=== PATIENT | male | born 1940 | race Caucasian/White ===

== ENCOUNTER 2019-08-02 13:10 | Emergency (ER) | payer MEDICARE, OTHER ==
[2019-08-02] MEDS: Sodium Chloride 0.9% 1,000 ML IV ONE (13:10)
--- NOTE | 2019-08-02 13:31 | EDM.PDOC ---
ED HPI GENERAL MEDICAL PROBLEM - General Chief Complaint: Lower Extremity Injury/Pain Stated Complaint: Left Hip Pain Time Seen by Provider: 08/02/19 13:10 Source of Information: Reports: Patient, EMS History Limitations: Reports: No Limitations - History of Present Illness INITIAL COMMENTS - FREE TEXT/NARRATIVE: Patient comes into the emergency department via EMS with complaint of a fall and injury to right hip. Patient states that he was walking backwards on his deck and ended up slipping and falling due to the slippery conditions from the rain. He ended up falling on his right hip. He was unable to stand up on his own and ended up needing to call 911. Patient states the pain is tolerable without movement and is very painful if touching or moving his right lower leg or pelvis. Patient states he can move his toes and denies any numbness or tingling in that extremity. Denies any previous injuries or surgeries to that him. Patient had an IV and 100 mcg Fentanyl given via EMS prior to arrival with great pain relief noted. Pt backboard was removed in the ER. Patient denies hitting his head or any other injuries noted. Onset: Sudden Quality: Reports: Sharp, Throbbing Severity: Moderate Improves with: Reports: Immobilization Worsens with: Reports: Movement Context: Reports: Activity Associated Symptoms: Reports: No Other Symptoms Treatments FACILITY SERVICE ASSOCIATE: Reports: IV/IO, See EMS Report - Related Data Allergies Allergy/AdvReac Type Severity Reaction Status Date / Time No Known Allergies Allergy Verified 08/02/19 13:47 Home Meds: Home Meds Lisinopril 40 mg PO DAILY 09/17/15 [History] Simvastatin [Zocor] 40 mg PO DAILY 09/17/15 [History] buPROPion HCL [Bupropion HCl Sr] 200 mg PO DAILY 08/02/19 [History] Past Medical History Cardiovascular History: Reports: High Cholesterol, Hypertension Psychiatric History: Reports: Depression - Past Surgical History GI Surgical History: Reports: Appendectomy, Other (See Below) Review of Systems - Review of Systems Review Of Systems: See Below Constitutional: Reports: No Symptoms Eyes: Reports: No Symptoms Ears: Reports: No Symptoms Nose: Reports: No Symptoms Mouth/Throat: Reports: No Symptoms Respiratory: Reports: No Symptoms Cardiovascular: Reports: No Symptoms GI/Abdominal: Reports: No Symptoms Genitourinary: Reports: No Symptoms Musculoskeletal: Reports: No Symptoms Skin: Reports: No Symptoms Neurological: Reports: No Symptoms Psychiatric: Reports: No Symptoms ED EXAM, GENERAL - Physical Exam Exam: See Below Exam Limited By: No Limitations General Appearance: Alert, WD/WN, No Apparent Distress Eye Exam: Bilateral Eye: EOMI, PERRL Throat/Mouth: Normal Inspection, Normal Lips, Normal Gums, Normal Voice, No Airway Compromise Head: Atraumatic, Normocephalic Neck: Normal Inspection, Supple, Non-Tender, Full Range of Motion Respiratory/Chest: No Respiratory Distress, Lungs Clear, Normal Breath Sounds, No Accessory Muscle Use, Chest Non-Tender Cardiovascular: Normal Peripheral Pulses, Regular Rate, Rhythm, No Edema GI/Abdominal: Normal Bowel Sounds, Soft, Non-Tender, Pelvis Stable Back Exam: Normal Inspection, Full Range of Motion Extremities: Leg Pain, Limited Range of Motion, Other (right leg shortening- deformity noted, pain upon palpation, no bleeding or redness noted. CMS intact. Ankle rang of Motion in take ) Neurological: Alert, Oriented, Normal Cognition Psychiatric: Normal Affect, Normal Mood Skin Exam: Warm, Dry, Intact Course - Orders/Labs/Meds Orders: Active Orders 24 hr Category Date Time Status Sodium Chloride 0.9% [Normal Saline] 1,000 ml Med 08/02/19 14:28 Ordered IV ONETIME Medication Orders Sodium Chloride (Normal Saline) 1,000 mls @ 125 mls/hr IV ONETIME ONE Stop: 08/02/19 22:27 Labs: Laboratory Tests 08/02/19 08/02/19 08/02/19 Range/Units 13:32 13:32 13:32 WBC 8.4 (4.0-10.0) x10^3/uL RBC 4.17 L (4.5-6.0) x10^6/uL Hgb 13.2 L (14.0-18.0) g/dL Hct 38.7 L (40.0-52.0) % MCV 92.8 (78.0-93.0) fL MCH 31.7 (26.0-32.0) pg MCHC 34.1 (32.0-36.0) g/dL RDW Coeff of Shelia 13.0 (10.0-15.0) % Plt Count 130 (130-400) x10^3/uL Neut % (Auto) 76.5 (50.0-80.0) % Lymph % (Auto) 16.2 L (25.0-50.0) % [place] % (Auto) 6.5 (2.0-11.0) % Eos % (Auto) 0.7 (0.0-4.0) % Baso % (Auto) 0.1 L (0.2-1.2) % PT 9.8 (9.5-12.3) SEC INR 0.9 L (2.0-3.5) Sodium 142 (136-145) mmol/L Potassium 4.2 (3.5-5.1) mmol/L Chloride 107 (98-107) mmol/L Carbon Dioxide 24 (21-32) mmol/L Anion Gap 15.2 (10-20) mmol/L BUN 14 (7-18) mg/dL Creatinine 1.1 (0.70-1.30) mg/dL Est Cr Clr Drug Dosing TNP Estimated GFR (MDRD) > 60 Glucose 108 H (74-106) mg/dL Calcium 7.9 L (8.5-10.1) mg/dL Corrected Calcium 8.38 L (8.5-10.1) mg/dL Total Bilirubin 0.6 (0.2-1.0) mg/dL AST 20 (15-37) U/L ALT 22 (16-63) U/L Alkaline Phosphatase 62 (46-116) U/L Total Protein 6.1 L (6.4-8.2) g/dL Albumin 3.4 (3.4-5.0) g/dL Globulin 2.7 Albumin/Globulin Ratio 1.26 Meds: Medications Generic Name Dose Route Start Last Admin Trade Name Freq PRN Reason Stop Dose Admin Sodium Chloride 1,000 mls @ 125 mls/hr 08/02/19 14:28 Normal Saline IV 08/02/19 22:27 ONETIME ONE Discontinued Medications Generic Name Dose Route Start Last Admin Trade Name Freq PRN Reason Stop Dose Admin Fentanyl 50 mcg 08/02/19 13:37 Sublimaze IVPUSH 08/02/19 13:38 ONETIME ONE Departure - Departure Time of Disposition: 14:20 Disposition: DC/Tfer to Acute Hospital 02 Condition: Good, Fair Clinical Impression: Fracture of neck of femur, hip - Discharge Information *PRESCRIPTION DRUG MONITORING PROGRAM REVIEWED*: Not Applicable *COPY OF PRESCRIPTION DRUG MONITORING REPORT IN PATIENT LESTER: Not Applicable Referrals: PCP,Not In Area [Primary Care Provider] - Forms: Interfacility Transfer EMTALA Sepsis Event Note - Focused Exam Date Exam was Performed: 08/02/19 Time Exam was Performed: 14:35 - My Orders Last 24 Hours: My Active Orders 08/02/19 14:28 Sodium Chloride 0.9% [Normal Saline] 1,000 ml IV ONETIME - Assessment/Plan Last 24 Hours: My Active Orders 08/02/19 14:28 Sodium Chloride 0.9% [Normal Saline] 1,000 ml IV ONETIME Assessment:: 1. right hip pain 2. Intertrochanteric femoral neck fracture with displacement Plan: 1. X-ray completed in the emergency department results reviewed with the patient 2. Ice Applied to the affected area 3. Medication offered to the patient- pt given 100mcg fentanyl prior to arrival 4. splinting applied to help to help with stability 5. Labs completed in ER results revealed with the patient 6. Consultation completed with La Hernández who agreed to the acute care admit for further medical and surgical intervention 7. Patient transported via ambulance to higher level of care. Delay in transport due to bed availability in [place]. 8. All questions and concerns addressed with the patient prior to discharge
[2019-08-02 14:04] LABS: CHLORIDE,CL 107 mmol/L (98-107); SODIUM,NA 142 mmol/L (136-145)
[2019-08-02 14:05] LABS: ANION GAP 15.2 mmol/L (10-20)
--- NOTE | 2019-08-02 14:13 | CR ---
[id number] RAD/RAD Pelvis W Right Lateral Hip EXAM: 2 VIEWS RIGHT HIP. INDICATION: FALL. DEFORMITY. COMPARISON: None. DISCUSSION: Acute intertrochanteric femoral neck fracture. There is superior displacement of approximately 3.5 cm. The fracture is multi fragmentary in nature. No dislocation. IMPRESSION: 1. As above. Beck Arevalo DO 08/02/19 1412 Thank you for allowing us to participate in the care of your patient.
[2019-08-02] MEDS: fentaNYL 100 MCG/2 ML SDV IVPUSH ONE (15:36)
[2019-08-02 15:40] VITALS: BP 103/61; PULSE 68
== END 2019-08-02 15:50 | disposition short-term general hospital (02) ==
LOC: VM.ED 13:10
DX: S72.091A Other fracture of head and neck of right femur, initial encounter for closed fracture (principal); E78.00 Pure hypercholesterolemia, unspecified; I10 Essential (primary) hypertension; F32.9 Major depressive disorder, single episode, unspecified; Z79.899 Other long term (current) drug therapy; Z90.49 Acquired absence of other specified parts of digestive tract; W01.0XXA Fall on same level from slipping, tripping and stumbling without subsequent striking against object, initial encounter
CPT/HCPCS: 36415; 80053; 85025; 85610; 96374; 99283-GF; 99285-25; J3010; J7030